=== PATIENT | female | born 1950 | race Caucasian/White ===

== ENCOUNTER 2018-11-25 13:05 | Outpatient (CLI) | payer BC ==
[2018-11-25] MEDS ORDERED: BARIUM SULFATE 135 ML SUSP.RECON (E-Z-HD) PO ONE (13:32)
== END 2018-11-25 21:20 | disposition home or self-care (01) ==
LOC: SRD 13:05
PROVIDERS: ATTEND Internal Medicine
DX: R13.12 Dysphagia, oropharyngeal phase (principal)
CPT/HCPCS: 74230; 92611-GN